=== PATIENT | female | born 2005 ===

== ENCOUNTER 2024-01-08 12:47 | Emergency (ER) | payer OTHER ==
[~2024-01-08] VITALS: Ht 157.5 cm; Wt 100.0 kg
[2024-01-08 12:59] VITALS: TEMP 98.2
[2024-01-08 13:32] LABS: APPEARANCE,URINE CLEAR (CLEAR); BILIRUBIN,URINE NEGATIVE (NEGATIVE); COLOR,URINE YELLOW (YELLOW); GLUCOSE, URINE (UA) NEGATIVE (NEGATIVE); KETONES,URINE NEGATIVE (NEGATIVE); LEUKOCYTE ESTERASE ,URINE TRACE (NEGATIVE); NITRATE,URINE NEGATIVE (NEGATIVE); OCCULT BLOOD,URINE NEGATIVE (NEGATIVE); PROTEIN,URINE NEGATIVE (NEGATIVE); SPECIFIC GRAVITIY, URINE 1.026 (1.003-1.030); UROBILINOGEN,URINE <=1.0 mg/dL (<=1.0)
[2024-01-08 13:36] LABS: HCG,QUAL URINE NEGATIVE (NEGATIVE)
[2024-01-08 13:46] LABS: BACTERIA,URINE Moderate /HPF (None Seen); WBC,URINE 0-2 /HPF (0-5)
[2024-01-08 13:47] LABS: RBC,URINE 0-2 /HPF (0-2); SQUAMOUS EPITHELIAL CELL,UR Few /LPF (None Seen)
[2024-01-08 16:26] VITALS: BP 121/65; PULSE 70; RESP 16
[2024-01-08] MEDS ORDERED: CEPH-558 PO (18:31)
== END 2024-01-08 18:35 | disposition home or self-care (01) ==
LOC: EMS 12:47
DX: N39.0 Urinary tract infection, site not specified (principal)
CPT/HCPCS: 74018; 81001; 84703; 87086; 87186; 99284